=== PATIENT | female | born 1990 | race Caucasian/White ===

== ENCOUNTER 2020-02-11 19:19 | Emergency (ER) | payer BC ==
[~2020-02-11] VITALS: Ht 175.3 cm; Wt 76.2 kg
[2020-02-11 19:25] VITALS: BP_SYST 125
--- NOTE | 2020-02-11 19:25 | NUR ---
Patient to ER bed 4 to gown for evaluation. Side rails up.
--- NOTE | 2020-02-11 19:30 | NUR ---
Pt C/O intermittent abdominal cramping and nausea x 1 week. Pt reports possible prenancy and has taken OTC tests and some have read both positive and negative. Denies any SOB, CP, vomiting, urinary symptoms or any other symptoms at this time. Pt has had two prior pregnancies both vaginal deliveries no complications
--- NOTE | 2020-02-11 19:40 | NUR ---
ER Dr. Perez at bedside examining patient.
[2020-02-11 20:26] LABS: BASOPHILS # (AUTO) 0.1 K/uL (0.0-0.2); BASOPHILS % (AUTO) 0.9 % (0.0-2.0); EOSINOPHILS # (AUTO) 0.1 K/uL (0.0-0.4); EOSINOPHILS % (AUTO) 1.5 % (0.0-4.0); HEMOGLOBIN 12.3 g/dL (12.0-16.0); LYMPHOCYTES # (AUTO) 2.8 K/uL (1.0-5.5); LYMPHOCYTES % (AUTO) 38.7 % (20.5-51.5); MEAN CORPUSCULAR HEMOGLOBIN 30 pg (27-31); MEAN CORPUSCULAR HGB CONC 35 % (32-36); MEAN CORPUSCULAR VOLUME 86 fL (79.0-98.0); MONOCYTES # (AUTO) 0.4 K/uL (0.0-1.0); NEUTROPHILS # (AUTO) 3.8 K/uL (1.8-7.7); NEUTROPHILS % (AUTO) 52.9 % (40.0-70.0); PLATELET COUNT (AUTO) 229 K/uL (130-430); RED BLOOD CELL COUNT(AUTO) 4.05 MIL/uL (4.2-6.2); RED CELL DISTRIBUTION WIDTH 12.7 % (9.0-15.0); WHITE BLOOD COUNT (AUTO) 7.1 K/uL (4.8-10.8)
--- NOTE | 2020-02-11 21:00 | NUR ---
Pt is resting comfortably in bed, no acute distress noted at this time. Will continue to monitor.
[2020-02-11 21:46] VITALS: BP_SYST 128
--- NOTE | 2020-02-11 21:49 | NUR ---
Patient given written and verbal discharge instructions and verbalizes understanding. ER MD discussed with patient the results and treatment provided. Patient in stable condition. ID arm band removed. IV catheter removed intact and dressing applied, no active bleeding. Rx of Zofran and Lynch given. Patient educated on pain management and to follow up with PMD. Pain Scale 0/10. Opportunity for questions provided and answered. Medication side effect fact sheet provided.
== END 2020-02-11 21:46 | disposition home or self-care (01) ==
LOC: SED 19:19
DX: N83.201 Unspecified ovarian cyst, right side (principal); N83.202 Unspecified ovarian cyst, left side
CPT/HCPCS: 36415; 76830-TC; 76857; 81002; 81025; 84703; 85025; 99284